=== PATIENT | male | born 1990 | race Caucasian/White ===

== ENCOUNTER 2018-03-16 05:21 | Emergency (ER) | payer SELFPAY ==
[2018-03-16] MEDS: EPINEPHrine 1 MG INJ IM (05:52)
[2018-03-16] MEDS: METHYLPREDNISOLONE 125 MG INJ IV (05:52)
[2018-03-16] MEDS: DIPHENHYDRAMINE 50 MG INJ IV (05:54)
[2018-03-16] MEDS: FAMOTIDINE 20 MG INJ IV (05:54)
[2018-03-16] MEDS: ALBUTEROL 0.083% (NEB) 2.5 MG/3 ML AMP INH (05:59)
[2018-03-16] MEDS: IPRATROPIUM (NEB) 0.5 MG/2.5 ML AMP INH (05:59)
== END 2018-03-16 07:41 | disposition home or self-care (01) ==
LOC: E/R 05:21
DX: T78.1XXA Other adverse food reactions, not elsewhere classified, initial encounter (principal); F17.210 Nicotine dependence, cigarettes, uncomplicated; R40.2142 Coma scale, eyes open, spontaneous, at arrival to emergency department; R40.2252 Coma scale, best verbal response, oriented, at arrival to emergency department; R40.2362 Coma scale, best motor response, obeys commands, at arrival to emergency department
CPT/HCPCS: 94664; 96372; 96374; 96375; 99284-25